=== PATIENT | male | born 1955 | race Caucasian/White ===

== ENCOUNTER → 2019-05-13 | Outpatient (CLI) | payer OTHER ==
[~2019-05-13] MED LIST: ASPIRIN325 PO; BAYER CHEWABLE81 MG PO; CO Q10 PO; COLACE100 MG PO; ENOXAPARIN40 MG/0.1 SUBQ; FLOMAX0.4 MG PO; LEVOTHYROXIN0.075 MG PO; MOBIC15 MG PO; NEURONTIN 300300 M1 PO; NORCO 5-325 TA1 EACH PO; OXYCODONE HCL 55 MG PO; TRAMADOL 50 MG50 MG PO; VITAMIN D32000 UNIT PO; ZESTRIL10 MG PO; ZOCOR40 MG PO
[2019-05-13 15:11] LABS: HEMATOCRIT 51.7 % (42.0-52.0); HEMOGLOBIN 17.7 gm/dL (14.0-18.0); MCHC 34.3 g/dL (28.0-37.0); MCV 93.4 fL (80.0-100.0); MPV 9.2 fl. (7.2-11.1); RBC 5.53 mil/uL (4.50-6.00); RDW-CV 12.5 % (10.5-14.5); WBC 5.4 thou/uL (4.0-11.0)
== END ==
LOC: M.LAB 14:54
PROVIDERS: Orthopaedic Surgery
DX: M25.561 Pain in right knee (principal)